=== PATIENT | female | born 1955 | race Caucasian/White ===

== ENCOUNTER 2018-11-07 08:31 | Outpatient (CLI) | payer BC ==
--- NOTE | 2018-11-07 08:53 | RAD ---
XR Lumbar Spine 2 Or 3 View HISTORY: Low back pain x2-3 months. Findings: The vertebral bodies are normal in height. There are osteophytic changes along the course o f the spine with mild degenerative disc narrowing at L4-5 and L5-S1. There are moderate degenerative facet changes of the lower lumbar spine. Pedicles are intact. Postop cholecystectomy owen ngrocky noted. IMPRESSION: Moderate arthritic changes of the spine.
--- NOTE | 2018-11-07 09:11 | BD ---
DEXA BONE DENSITY STUDY: HISTORY: Postmenopausal. FINDINGS: Lumbar Spine: BMD (g/cm2) L1 1.103 T-Score: +1.0 L2 1.160 T-Score: +1.2 L3 1.187 T-Score: +0.9 L4 1.197 T-Score: +1.2 L1-L4 1.165 T-Score: +1.1 Femoral Neck: 0.859 T-Score: +0.1 Total Femur: 1.079 T-Score: +1.1 Impression: Normal bone mineral density of the lumbar spine and left femoral neck. POS: KATIA
== END 2018-11-07 08:32 | disposition home or self-care (01) ==
LOC: BICMAMMO 08:31
PROVIDERS: ATTEND Family Medicine
DX: Z13.820 Encounter for screening for osteoporosis (principal); M54.5 Low back pain; M46.96 Unspecified inflammatory spondylopathy, lumbar region
CPT/HCPCS: 72100; 77080

== ENCOUNTER 2018-12-10 14:53 | Outpatient (CLI) | payer BC ==
--- NOTE | 2018-12-10 15:21 | ULT ---
Renal sonogram HISTORY: Hematuria. FINDINGS: Right kidney measures up to 9.9 cm length and the left kidney 9.8 cm. Each has a normal son ographic appearance. No evidence of mass, stone, or hydronephrosis. Urinary bladder is unremarkable. Minimal postvoid residual. IMPRESSION: Normal renal sonogram.
== END 2018-12-10 14:54 | disposition home or self-care (01) ==
LOC: ULT 14:53
PROVIDERS: ATTEND Family Medicine
DX: R31.9 Hematuria, unspecified (principal)
CPT/HCPCS: 76770

== ENCOUNTER 2019-01-13 08:20 | Outpatient (CLI) | payer BC ==
--- NOTE | 2019-01-13 10:16 | CT ---
CT ABDOMEN AND PELVIS WITH AND WITHOUT IV CONTRAST: HISTORY: Hematuria. FINDINGS: A 4 mm solid parenchymal nodule is seen at the right lung base. The patient is post cholecystectomy and hysterectomy. The liver, spleen, pancreas, and adrenal glands are normal. No free air, free flu id, or lymphadenopathy is seen in the abdomen or pelvis. No calculi are noted in the kidneys, ureters, or the urinary bladder. No hydroureteral nephrosis is seen on either side. Postcontrast images demonstrate no renal mass. There is normal contrast excret ion into the ureters and urinary bladder. There are vascular calcifications without evidence of aneurysmal dilatation of the abdominal aorta. There are degenerative changes in the spine. A normal-appearing appendix is present. There is mild sigmoid diverticulosis. IMPRESSION: 1. No CT evidence of urinary tract calculi/obstruction or renal mass. 2. CT chest is recommended to evaluate RLL nodule. POS: INDIRA
[2019-01-13] MEDS ORDERED: Iopamidol 370 76% 100 ML VIAL ONE (15:10)
== END 2019-01-13 08:21 | disposition home or self-care (01) ==
LOC: CT 08:20
PROVIDERS: ATTEND Urology
DX: R31.9 Hematuria, unspecified (principal)
CPT/HCPCS: 74178; 82565; Q9967

== ENCOUNTER 2024-10-09 09:43 | Outpatient (CLI) | payer BC | END 2024-10-09 09:44 | disposition home or self-care (01) | LOC: BICRAD 09:43 | PROVIDERS: ATTEND Family Medicine | DX: M25.551 Pain in right hip (principal) ==